=== PATIENT | male | born 1945 | race Caucasian/White ===

== ENCOUNTER 2020-06-13 14:13 | Emergency (ER) | payer OTHER ==
--- OUTSIDE RECORDS SUMMARY | 2020-06-13 14:16 | XMS REPORT | Clinical Summary ---
:1945 Author Organization [facility] Address [address] [place] [address] Care Team Providers Name Role Phone Cj Magana MD Primary Care Provider Allergies No Known Active Allergies Medications Medication Sig Dispensed Refills Start Date End Date Status lisinopril Take 5 mg by 0 Active (PRINIVIL,ZESTRIL) 5 mg mouth daily. 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 07/22/2017 without gangrene, without long-term current use of ins ulin Diabetic peripheral neuropathy 07/22/2017 S/P CABG x 3 07/22/2017 Ulcer of right foot 07/15/2017 Other hyperlipidemia 07/15/2017 ACS (acute coronary syndrome) 07/09/2017 IDDM (insulin dependent diabetes mellitus) 07/05/2017 Coronary artery disease involving [place] coronary rohini ry of [place] heart 07/05/2017 without angina pectoris Obesity 07/05/2017 Surgical History Surgery Date Site/Laterality Comments AMPUTATION 05/08/2012 - right 3rd and 4t h toes 05/07/2013 amputated and ri ght first toe put ov er incision to cove r wound. CABG, WITH ENDOSCOPIC VEIN 07/13/2017 Chest/N/A Proce dure: CAB WITH EV; HARVESTING Surgeon: Eduardo Kerr MD ; Location: [facility]; Service: Cardiothoracic; Laterality: N/A; Medical devices from this surgery are in the Implants section . Medical History Medical History Date Comments Diabetes mellitus (HCC) 2007 Hypertension CAD (coronary artery disease) Family History Medical History Relation Name Comments Diabetes Brother Heart disease Brother Cancer Father Relation Name Status Comments Brother Father Mother Social History Tobacco Use Types Packs/Day Years Used Date Never Smoker Smokeless Tobacco: Former User Chew Q uit: 07/07/2017 Alcohol Use Drinks/Week oz/Week Comments No Sex Assigned at Date Recorded Not on file Last Filed Vital Signs Not on file Plan of Treatment Health Maintenance Due Date Last Done Comments DIABETIC FOOT EXAM 1957 URINE MICROALBUMIN 1957 COVID-19 VACCINE (1 of 2) 1963 HEPATITIS C SCREENING 1965 COLONOSCOPY SCREENING 1997 SHINGLES VACCINES (#1) 1997 65+ PNEUMOCOCCAL VACCINE (1 of 1 - PPSV23) 01/10/2012 DIABETES: RETINAL EYE EXAM 01/10/2019 01/10/2017 INFLUENZA VACCINE 12/07/2019 Implants Implanted Type Area Ceramic Coater Device Shelf Model / Identifier Expiration Serial / Date Lot Drain Wnd 19fr Rnd Hbls W/ 1/4in Bendbl Trocar Eloise Emre ke Wht - [id number] Surgical N/A: N/A ETHICON DIV OF 2231 / Implanted: 07/13/2017 at [facility] (Quantity not on file) Imp lants; MARY ANN & / Expanders; MARY ANN Extenders; Surgical Wires Drain Wnd 19fr Rnd Hbls W/ 4in Bendbl Trocar Eloise Emre ke Wht - [id number] Surgical N/A: N/A ETHICON DIV OF 2231 / Implanted: 07/13/2017 at [facility] (Quantity not on file) Imp lants; MARY ANN & / Expanders; MARY ANN Extenders; Surgical Wires [facility] [facility] Vasclr Ptfe 1.2x10cm 1.65mm - [id number] Vascular N/A: N/A BARD PERIPHERAL 04/04/2022 [id number] / Implanted: 07/13/2017 at [facility] (Quantity not on file) Graft VASCULAR / [id number] Explanted Type Area Ceramic Coater Device Shelf Model / Identifier Expiration Serial / Date Lot Lead Pace Hardik Mycrdl Unipol Tmpry Streamline - [id number] Cardi ovascular N/A: [employer] [place] - [id number] / Implanted: 07/13/2017 at [facility] (Quantity not on file) Imp lants N/A CARDIAC SRGRY / Lead Pace Hardik Mycrdl Unipol Tmpry Streamline - [id number] Cardi ovascular N/A: [employer] [place] - [id number] / Implanted: 07/13/[address] [facility] (Quantity not on file) Imp lants N/A CARDIAC SRGRY / Results Not on fileafter 06/13/2019 Additional Health Concerns Infection Onset Date Last Indicated Resolved Time CRE (C ) 07/21/2017 07/21/2017 Insurance Payer Benefit Plan / Subscriber ID Effective Dates Phone Addre ss Type Group MEDICARE MEDICARE PART A [id number] 2012-Present MYRON MALONEY Medicare AND B Advance Directives For more information, please contact: [phone] Type Date Recorded Patient Toll Operator Explanati on Advance Directives, Living Will and Medical Power of Outdoor Landscape Architect Code Status Date Activated Date Inactivated Comments Full Code 07/10/2017 2:09 AM 07/11/2017 2:59 PM Code Status decision reached by: Patient
[2020-06-13] MEDS ORDERED: levoFLOXacin 750 MG TAB ONE (15:27)
[2020-06-13] MEDS ORDERED: TETANUS & DIPHTHERIA TOX,ADULT 0.5 ML VIAL ONE (15:28)
--- NOTE | 2020-06-13 15:55 | RAD REPORT ---
EXAM DESCRIPTION: RAD - Foot Right 3 View - 06/13/2020 3:29 pm CLINICAL HISTORY: puncture, rule out fb COMPARISON: No comparisons FINDINGS: No acute fracture change. No acute bony destructive process identifiable. No retained fore ign body seen in the soft tissues. Patient has large plantar and Achilles spurs. The first- third toe s and most of each first through third metatarsal have been resected. No destructive component. No ai r in the soft tissues. IMPRESSION: No foreign body in the soft tissues. First- third toe and metatarsal resection changes present with associated remodeling of the bony stru ctures.
--- NOTE | 2020-06-13 16:00 | ER ---
Nurse's Notes [facility] Name: Gaston Mcclain Age: 75 yrs Sex: Male : 1945 Arrival Date: 06/13/2020 Time: 14:16 Bed 14 Private MD: Diagnosis: Puncture wound without foreign body of foot Presentation: 06/13 14:38 Chief complaint: Patient states: Patient stepped on a shannan nail about 1337 today. nail zb went through boot into foot. denies updated tetanus shot. Coronavirus screen: At this time, the client does not indicate any symptoms associated with coronavirus-19. Ebola Screen: No symptoms or risks identified at this time. Initial Sepsis Screen: Does the patient meet any 2 criteria? No. Patient's initial sepsis screen is negative. Does the patient have a suspected source of infection? No. Patient's initial sepsis screen is negative. Risk Assessment: Do you want to hurt yourself or someone else? Patient reports no desire to harm self or others. Onset of symptoms was June 13, 2020. 14:38 Acuity: BAILEE 3 zb 14:38 Method Of Arrival: Wheelchair zb Triage Assessment: 14:53 General: Appears in no apparent distress. uncomfortable, Behavior is cooperative, zb agitated. Pain: Complains of pain in arch of right foot Pain currently is 5 out of 10 on a pain scale. Quality of pain is described as stinging, Pain began gradually, 1 hour ago. EENT: No deficits noted. Neuro: No deficits noted. Level of Consciousness is awake, alert, obeys commands, Oriented to person, place, time, situation. Cardiovascular: Capillary refill < 3 seconds in bilateral fingers Patient's skin is warm and dry. Respiratory: Airway is patent Respiratory effort is even, unlabored, Respiratory pattern is regular, symmetrical. GI: No signs and/or symptoms were reported involving the gastrointestinal system. : No signs and/or symptoms were reported regarding the genitourinary system. Derm: Skin is intact, is healthy with good turgor, Skin is dry, Skin is normal, Skin temperature is warm. 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 Capillary refill < 3 seconds, in bilateral fingers. Range of motion: right foot. Historical: - Allergies: 14:52 No Known Allergies; zb - Home Meds: 14:52 insulin [Active]; zb - PMHx: 14:52 Diabetes - IDDM; zb - PSHx: 14:52 CABG; zb - Immunization history:: Adult Immunizations up to date, Adult Immunizations Last tetanus immunization: > 10 years ago. - Social history:: Smoking status: Patient denies any tobacco usage or history of. Screenin:47 Abuse screen: Denies threats or abuse. Denies injuries from another. Nutritional zb screening: No deficits noted. Tuberculosis screening: No symptoms or risk factors identified. Fall Risk None identified. Assessment: 14:53 Reassessment: See triage noted. Reassessment: dressing bandaged with gauge and cleaned. zb 15:46 Reassessment: Patient and/or family updated on plan of care and expected duration. Pain zb level reassessed. Patient is alert, oriented x 3, equal unlabored respirations, skin warm/dry/pink. no changes at this time. IM protocol completed. 15:47 Reassessment: ECP at bedside discussing care with patient. zb Vital Signs: 14:38 BP 148 / 62; Pulse 72; Resp 17; Temp 98.4; Pulse Ox 97% on R/A; Weight 114.76 kg; zb Height 6 ft. 2 in. (187.96 cm); Pain 5/10; 15:46 BP 135 / 55; Pulse 68; Resp 18; Pulse Ox 98% on R/A; zb 14:38 Body Mass Index 32.48 (114.76 kg, 187.96 cm) zb ED Course: 14:16 Patient arrived in ED. ag5 14:26 Patient has correct armband on for positive identification. Bed in low position. Call mh5 light in reach. Side rails up X 1. Pulse ox on. NIBP on. 14:34 Samir Melgar PA is PHCP. [facility] 14:34 Mitchell Anand MD is Attending Physician. jmm 14:37 Nancy Tineo RN is Primary Nurse. zb 14:40 Triage completed. zb 15:29 Foot Right 3 View XRAY In Process Unspecified. EDMS 15:48 Arm band placed on. zb 15:49 No provider procedures requiring assistance completed. Patient did not have IV access zb during this emergency room visit. 15:59 Nathan Latham DPM is Referral Physician. riley Administered Medications: 15:23 Drug: Tetanus-Diphtheria Toxoid Adult 0.5 ml {Cigar Head Holer: [employer]. Exp: zb 08/22/2021. Lot #: [id number]. } Route: IM; Site: right deltoid; 15:24 Drug: LevaQUIN 750 mg Route: PO; zb Outcome: 15:59 Discharge ordered by . riley 16:05 Discharged to home ambulatory. zb 16:05 Condition: stable 16:05 Discharge instructions given to patient, Instructed on discharge instructions, follow up and referral plans. medication usage, Demonstrated understanding of instructions, follow-up care, medications, Prescriptions given X 1. 16:07 Patient left the ED. zb Signatures: Dispatcher [employer] EDMS Samir Melgar PA PA jmm Martinez, Maria 5 Mike Magallon 5 Nancy Tineo RN RN zb
--- NOTE | 2020-06-13 16:00 | EDPHYS ---
Physician Documentation [facility] Name: Gaston Mcclain Age: 75 yrs Sex: Male : 1945 Arrival Date: 06/13/2020 Time: 14:16 Bed 14 Private MD: ED Physician Mitchell Anand HPI: 06/13 14:50 This 75 yrs old Unknown Male presents to ER via Wheelchair with complaints of Puncture jmm Wound To Foot. 14:50 The patient presents with an injury, pain. Onset: The symptoms/episode began/occurred jmm acutely, gradually. Modifying factors: The symptoms are alleviated by nothing, the symptoms are aggravated by nothing. Associated signs and symptoms: Pertinent negatives: calf tenderness, fever, nausea, swelling, tingling, vomiting, warmth, weakness. This is a 75 year old male with a history of DM, that presents to the ED with complaints of a puncture wound to his right foot. Patient states the nail went through his boot. . Historical: - Allergies: 14:52 No Known Allergies; zb - Home Meds: 14:52 insulin [Active]; zb - PMHx: 14:52 Diabetes - IDDM; zb - PSHx: 14:52 CABG; zb - Immunization history:: Adult Immunizations up to date, Adult Immunizations Last tetanus immunization: > 10 years ago. - Social history:: Smoking status: Patient denies any tobacco usage or history of. ROS: 14:50 Constitutional: Negative for fever, chills, and weight loss, Cardiovascular: Negative jmm for chest pain, palpitations, and edema, Respiratory: Negative for shortness of breath, cough, wheezing, and pleuritic chest pain. 14:50 Skin: Positive for puncture. 14:50 All other systems are negative. Exam: 14:50 Constitutional: This is a well developed, well nourished patient who is awake, alert, jmm and in no acute distress. Head/Face: atraumatic. Eyes: EOMI, no conjunctival erythema appreciated ENT: Moist Mucus Membranes Neck: Trachea midline, Supple Chest/axilla: Normal chest wall appearance and motion. Cardiovascular: Regular rate and rhythm. No edema appreciated Respiratory: Normal respirations, no respiratory distress appreciated Abdomen/GI: Non distended, soft Back: Normal ROM 14:50 Skin: puncture wound noted to the plantar surface of the right foot, no surrounding erythema or induration appreciated. . 14:50 Neuro: Orientation: is normal, Mentation: is normal, Memory: is normal. 14:50 Psych: Behavior/mood is pleasant, cooperative. Vital Signs: 14:38 BP 148 / 62; Pulse 72; Resp 17; Temp 98.4; Pulse Ox 97% on R/A; Weight 114.76 kg; zb Height 6 ft. 2 in. (187.96 cm); Pain 5/10; 15:46 BP 135 / 55; Pulse 68; Resp 18; Pulse Ox 98% on R/A; zb 14:38 Body Mass Index 32.48 (114.76 kg, 187.96 cm) zb MDM: 14:35 Patient medically screened. [facility] 15:58 Data reviewed: vital signs, nurses notes. Counseling: I had a detailed discussion with riley the patient and/or guardian regarding: the historical points, exam findings, and any diagnostic results supporting the discharge/admit diagnosis, radiology results, the need for outpatient follow up, to return to the emergency department if symptoms worsen or persist or if there are any questions or concerns that arise at home. ED course: Patient given wound infection return precautions. Patient understood and agrees with the plan of care. . 06/13 14:48 Order name: Foot Right 3 View XRAY; Complete Time: 15:58 [facility] Administered Medications: 15:23 Drug: Tetanus-Diphtheria Toxoid Adult 0.5 ml {Distribution Superintendent: [employer]. Exp: zb 08/22/2021. Lot #: [id number]. } Route: IM; Site: right deltoid; 15:24 Drug: LevaQUIN 750 mg Route: PO; zb Disposition: 17:50 Co-signature as Attending Physician, Mitchell Anand MD. rn Disposition: 06/13/20 15:59 Discharged to Home. Impression: Puncture wound without foreign body of foot. - Condition is Stable. - Discharge Instructions: Puncture Wound. - Prescriptions for Levaquin 750 mg Oral Tablet - take 1 tablet by ORAL route once daily for 10 days; 10 tablet. - Medication Reconciliation Form, Thank You Letter, Antibiotic Education, Prescription Opioid Use form. - Follow up: Nathan Latham DPM; When: 2 - 3 days; Reason: Recheck today's complaints, Continuance of care, Re-evaluation by your physician. Signatures: Dispatcher [employer] Samir Pruett PA PA jmm Nieto, Roman, MD MD rn Brown, Zipporah, RN RN zb Corrections: (The following items were deleted from the chart) 16:07 15:59 06/13/2020 15:59 Discharged to Home. Impression: Puncture wound without foreign zb body of foot. Condition is Stable. Forms are Medication Reconciliation Form, Thank You Letter, Antibiotic Education, Prescription Opioid Use. Follow up: Nathan Latham; When: 2 - 3 days; Reason: Recheck today's complaints, Continuance of care, Re-evaluation by your physician. riley
[2020-06-13 16:19] VITALS: TEMP 98.4
[2020-06-13 16:20] VITALS: BP 135/55; O2SAT 98
== END 2020-06-13 16:07 | disposition home or self-care (01) ==
LOC: ER 14:13
DX: S91.331A Puncture wound without foreign body, right foot, initial encounter (principal); W45.0XXA Nail entering through skin, initial encounter; Y93.01 Activity, walking, marching and hiking; Y92.9 Unspecified place or not applicable; Z23 Encounter for immunization; Z79.4 Long term (current) use of insulin; Z95.1 Presence of aortocoronary bypass graft; E11.9 Type 2 diabetes mellitus without complications
CPT/HCPCS: 90471; 90714; 99284

== ENCOUNTER 2023-03-24 11:34 | Inpatient (IN) | payer OTHER ==
--- NOTE | 2023-03-24 12:58 | EDPHYS ---
Physician Documentation [facility] Name: Gaston Mcclain Age: 78 yrs Sex: Male : 1945 Arrival Date: 03/24/2023 Time: 11:34 Bed 4 Private MD: AFTAB Physician Ryan Dye HPI: 03/24 12:49 This 78 yrs old Male presents to ER via Wheelchair with complaints of Foot terri Infection. 12:49 The patient presents with decreased range of motion, pain, swelling, tenderness. The terri complaints affect the left foot, plantar aspect of left first toe, ball of left foot, left first toe and medial aspect of left toes. 12:50 Context: resulted from an old injury, old abrasion, the patient can partially bear terri weight. Onset: The symptoms/episode began/occurred 3 week(s) ago. Modifying factors: The symptoms are alleviated by nothing, the symptoms are aggravated by weight bearing, movement, wearing shoes. Associated signs and symptoms: Pertinent positives: fever, swelling, warmth. Severity of symptoms: At their worst the symptoms were moderate, in the emergency department the symptoms are unchanged. The patient has experienced similar episodes in the past, multiple times. Historical: - Allergies: 12:08 No Known Allergies; nj1 - PMHx: 12:08 Diabetes - IDDM; nj1 - PSHx: 12:08 Coronary artery bypass graft; nj1 - Immunization history:: Client reports receiving the 2nd dose of the Covid vaccine. - Social history:: Smoking status: Patient reports use of chewing tobacco. - Family history:: not pertinent. - Hospitalizations: : No recent hospitalization is reported. ROS: 12:50 Constitutional: Negative for fever, chills, and weight loss, Eyes: Negative for injury, terri pain, redness, and discharge, ENT: Negative for injury, pain, and discharge, Neck: Negative for injury, pain, and swelling, Cardiovascular: Negative for chest pain, palpitations, and edema, Respiratory: Negative for shortness of breath, cough, wheezing, and pleuritic chest pain, Abdomen/GI: Negative for abdominal pain, nausea, vomiting, diarrhea, and constipation, Back: Negative for injury and pain, : Negative for injury, bleeding, discharge, and swelling, Neuro: Negative for headache, weakness, numbness, tingling, and seizure, Psych: Negative for depression, anxiety, suicide ideation, homicidal ideation, and hallucinations, Allergy/Immunology: Negative for hives, rash, and allergies, Endocrine: Negative for neck swelling, polydipsia, polyuria, polyphagia, and marked weight changes, Hematologic/Lymphatic: Negative for swollen nodes, abnormal bleeding, and unusual bruising, 12:50 MS/extremity: Positive for decreased range of motion, erythema, pain, swelling, tenderness, of the instep of left foot, plantar aspect of left first toe, ball of left foot, left first toe and medial aspect of left toes, Exam: 12:50 Constitutional: This is a well developed, well nourished patient who is awake, alert, terri and in no acute distress. Head/Face: Normocephalic, atraumatic. Eyes: Pupils equal round and reactive to light, extra-ocular motions intact. Lids and lashes normal. Conjunctiva and sclera are non-icteric and not injected. Cornea within normal limits. Periorbital areas with no swelling, redness, or edema. ENT: Nares patent. No nasal discharge, no septal abnormalities noted. Tympanic membranes are normal and external auditory canals are clear. Oropharynx with no redness, swelling, or masses, exudates, or evidence of obstruction, uvula midline. Mucous membranes moist. Neck: Trachea midline, no thyromegaly or masses palpated, and no cervical lymphadenopathy. Supple, full range of motion without nuchal rigidity, or vertebral point tenderness. No Meningismus. Chest/axilla: Normal chest wall appearance and motion. Nontender with no deformity. No lesions are appreciated. Cardiovascular: Regular rate and rhythm with a normal S1 and S2. No gallops, murmurs, or rubs. Normal PMI, no JVD. No pulse deficits. Respiratory: Lungs have equal breath sounds bilaterally, clear to auscultation and percussion. No rales, rhonchi or wheezes noted. No increased work of breathing, no retractions or nasal flaring. Abdomen/GI: Soft, non-tender, with normal bowel sounds. No distension or tympany. No guarding or rebound. No evidence of tenderness throughout. Back: No spinal tenderness. No costovertebral tenderness. Full range of motion. Male : Normal genitalia with no discharge or lesions. Neuro: Awake and alert, GCS 15, oriented to person, place, time, and situation. Cranial nerves II-XII grossly intact. Motor strength 5/5 in all extremities. Sensory grossly intact. Cerebellar exam normal. Normal gait. Psych: Awake, alert, with orientation to person, place and time. Behavior, mood, and affect are within normal limits. 12:50 Musculoskeletal/extremity: ROM: full active range of motion, full passive range of motion, Circulation is intact in all extremities. Sensation intact. Compartment Syndrome exam of affected extremity: is normal. DVT Exam: negative Homans' sign noted on exam, no appreciated bluish discoloration, pain, swelling, tenderness, erythema, increased warmth, 12:50 Skin: Appearance: Color: erythematous, Temperature: hot, Moisture: normal moisture, petechiae, not noted, ecchymosis, not noted, 13:22 ECG was reviewed by the Attending Physician. [facility] Vital Signs: 12:04 BP 106 / 95; Pulse 75; Resp 18; Temp 98(O); Pulse Ox 100% ; Weight 99.79 kg; Height 6 nj1 ft. 1 in. ; Pain 8/10; 16:15 BP 153 / 59; Pulse 64; Resp 16 S; Pulse Ox 98% on R/A; kc6 12:04 Body Mass Index 29.03 (99.79 kg, 185.42 cm) nj1 12:04 Pain Scale: Adult nj1 MDM: 11:37 Patient medically screened. [facility] 13:21 Differential diagnosis: fracture, sprain, arthritis, gout, cellulitis. Data reviewed: [facility] vital signs, nurses notes, lab test result(s), EKG, radiologic studies, MRI, plain films. Consideration of Admission/Observation Patient was admitted/placed on observation. Escalation of care including admission/observation considered. I considered the following discharge prescriptions or medication management in the emergency department Medications were administered in the Emergency Department. See MAR. Independent interpretation of the following test(s) in the Emergency Department EKG: See my EKG interpretation above. Test considered but Not performed: Ultrasound no abd usg. Historians other than the Patient: Family Member: daughter. Care significantly affected by the following chronic conditions: Diabetes, Hypertension, Obesity. 03/24 12:42 Order name: Basic Metabolic Panel; Complete Time: 14:28 [facility] 03/24 12:42 Order name: CBC with Diff; Complete Time: 14:28 [facility] 03/24 12:42 Order name: LFT's; Complete Time: 14:28 [facility] 03/24 12:42 Order name: Magnesium; Complete Time: 14:28 [facility] 03/24 12:42 Order name: NT PRO-BNP; Complete Time: 14:28 [facility] 03/24 12:42 Order name: PT-INR; Complete Time: 14:28 [facility] 03/24 12:42 Order name: Troponin HS; Complete Time: 14:28 [facility] 03/24 12:42 Order name: COVID-19/FLU A+B/RSV; Complete Time: 14:28 [facility] 03/24 12:42 Order name: Blood Culture Adult (2) [facility] 03/24 12:42 Order name: CRP; Complete Time: 14:28 [facility] 03/24 12:42 Order name: Lipase; Complete Time: 14:28 [facility] 03/24 12:42 Order name: Lactate w/ 2H reflex if indic.; Complete Time: 14:28 [facility] 03/24 12:53 Order name: Wound Culture [facility] 03/24 13:55 Order name: Lactate w/ 2H reflex if indic. EDMS 03/24 13:55 Order name: Urinalysis w/ reflexes EDMS 03/24 13:55 Order name: Basic Metabolic Panel EDMS 03/24 13:55 Order name: Basic Metabolic Panel EDMS 03/24 13:55 Order name: Basic Metabolic Panel EDMS 03/24 13:55 Order name: Basic Metabolic Panel EDMS 03/24 13:55 Order name: Basic Metabolic Panel EDMS 03/24 13:55 Order name: Basic Metabolic Panel EDMS 03/24 13:55 Order name: CBC with Automated Diff EDMS 03/24 13:55 Order name: CBC with Automated Diff EDMS 03/24 13:55 Order name: CBC with Automated Diff EDMS 03/24 13:55 Order name: CBC with Automated Diff EDMS 03/24 13:55 Order name: CBC with Automated Diff EDMS 03/24 13:55 Order name: CBC with Automated Diff EDMS 03/24 13:55 Order name: Magnesium EDMS 03/24 13:55 Order name: Magnesium EDMS 03/24 13:55 Order name: Magnesium EDMS 03/24 13:55 Order name: Magnesium EDMS 03/24 13:55 Order name: Magnesium EDMS 03/24 13:55 Order name: Magnesium EDMS 03/24 13:55 Order name: Phosphorus EDMS 03/24 13:55 Order name: Phosphorus EDMS 03/24 13:55 Order name: Phosphorus EDMS 03/24 13:55 Order name: Phosphorus EDMS 03/24 13:55 Order name: Phosphorus EDMS 03/24 13:55 Order name: Phosphorus EDMS 03/24 13:55 Order name: Troponin High Sensitivity EDMS 03/24 13:55 Order name: Troponin High Sensitivity EDMS 03/24 13:55 Order name: Troponin High Sensitivity [facility] 03/24 12:42 Order name: XRAY Chest (1 view); Complete Time: 14:28 [facility] 03/24 12:45 Order name: Foot Left 3 View XRAY; Complete Time: 14:28 [facility] 03/24 12:45 Order name: Foot Right 3 View XRAY; Complete Time: 14:28 [facility] 03/24 12:48 Order name: Foot Left Wo Cont [facility] 03/24 12:42 Order name: EKG; Complete Time: 12:43 [facility] 03/24 13:55 Order name: CONS Physician Consult [facility] 03/24 12:42 Order name: Cardiac monitoring; Complete Time: 12:48 [facility] 03/24 12:42 Order name: EKG - Nurse/Tech; Complete Time: 12:48 [facility] 03/24 12:42 Order name: IV Saline Lock; Complete Time: 12:48 [facility] 03/24 12:42 Order name: Labs collected and sent; Complete Time: 12:48 [facility] 03/24 12:42 Order name: O2 Per Protocol; Complete Time: 12:48 [facility] 03/24 12:42 Order name: O2 Sat Monitoring; Complete Time: 12:48 [facility] EC:22 Rate is 71 beats/min. Rhythm is regular. QRS [place] is Normal. [place] interval is normal. QRS terri interval is normal. QT interval is prolonged at 467 msec. No Q waves. T waves are Normal. No ST changes noted. Clinical impression: NSR w/ Non-specific ST/T Changes, Abnormal EKG without significant change, and No evidence of ischemia. Interpreted by me. Reviewed by me. Administered Medications: 13:09 Drug: Piperacillin-Tazobactam IVPB 3.375 grams IVPB once over 60 mins; (mix in NS 100 kc6 mL) Route: IVPB; Infused Over: 60 mins; Site: right antecubital; 14:30 Follow up: Response: No adverse reaction; IV Status: Completed infusion; IV Intake: kc6 100ml 13:15 Drug: morphine IVP or IV 4 mg IVP once over 4 mins Route: IVP; Infused Over: 4 mins; kc6 Site: left antecubital; 14:30 Follow up: Response: No adverse reaction; Pain is decreased; RASS: Alert and Calm (0) kc6 13:15 Drug: Ondansetron IVP 4 mg IVP once; over 2 minutes Route: IVP; Site: left antecubital; kc6 14:31 Follow up: Response: No adverse reaction kc6 14:59 Drug: vancoMYCIN IVPB 1.5 grams IVPB at calculated rate once Route: IVPB; Rate: kc6 calculated rate; Site: right antecubital; 16:17 Follow up: Response: No adverse reaction; IV Status: Completed infusion; IV Intake: kc6 250ml 14:59 Drug: Lovenox Sub-Q 40 mg Sub-Q once Route: Sub-Q; Site: abdomen; kc6 16:17 Follow up: Response: No adverse reaction kc6 Disposition Summary: 03/24/23 12:57 Hospitalization Ordered Notes: Condition: Fair terri Problem: new terri Symptoms: have improved terri Bed/Room Type: Standard terri Hospitalization Status: Inpatient Admission(03/24/23 13:25) terri Provider: Umair Cruz(03/24/23 13:25) terri Location: Telemetry/MedSurg (Inpatient)(03/24/23 14:38) eb Room Assignment: 214(03/24/23 14:38) eb Diagnosis - Personal history of diabetic foot ulcer terri - Type 2 diabetes mellitus with hyperglycemia terri - Cellulitis of other parts of limb - left foot and great toe terri - Osteomyelitis, unspecified - left foot terri - Unspecified kidney failure - renal insufficency terri Forms: - Medication Reconciliation Form terri - SBAR form terri - Leadership Thank You Letter terri Signatures: Dispatcher [employer] Ryan Whatley MD MD cha Botello, Elizabeth eb Campbell, Kaitlyn RN RN kc6 Lyndsey To RN RN kb3 Neha Hubbard RN RN nj1 Corrections: (The following items were deleted from the chart) 13:25 12:57 Inpatient Admission terri murray 13:25 12:57 Chuck Fritz cha terri 14: 12:57 Telemetry/MedSurg (Inpatient) terri kb3 14:27 12:57 terri kb3 14:38 14:27 [facility] kb3 eb 14:38 14:27 ERHOLD- kb3 eb
--- NOTE | 2023-03-24 12:58 | ER ---
Nurse's Notes [facility] Name: Gaston Mcclain Age: 78 yrs Sex: Male : 1945 Arrival Date: 03/24/2023 Time: 11:34 Bed 4 Private MD: Diagnosis: Personal history of diabetic foot ulcer;Type 2 diabetes mellitus with hyperglycemia;Cellulitis of other parts of limb-left foot and great toe;Osteomyelitis, unspecified-left foot;Unspecified kidney failure-renal insufficency Presentation: 03/24 12:04 Chief complaint: Patient states: Left foot bunion infection that started draining last nj1 week, feels weak, states blood pressure is low. 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 Coronavirus screen: Vaccine status: Patient reports receiving the 2nd dose of the covid vaccine. Ebola Screen: Patient denies travel to an Ebola-affected area in the 21 days before illness onset. Initial Sepsis Screen: Does the patient meet any 2 criteria? No. Patient's initial sepsis screen is negative. Does the patient have a suspected source of infection? No. Patient's initial sepsis screen is negative. Risk Assessment: Do you want to hurt yourself or someone else? Patient reports no desire to harm self or others. Onset of symptoms was March 17, 2023. 12:04 Method Of Arrival: Wheelchair nj1 12:04 Acuity: BAILEE 3 nj1 Historical: - Allergies: 12:08 No Known Allergies; nj1 - PMHx: 12:08 Diabetes - IDDM; nj1 - PSHx: 12:08 Coronary artery bypass graft; nj1 - Immunization history:: Client reports receiving the 2nd dose of the Covid vaccine. - Social history:: Smoking status: Patient reports use of chewing tobacco. - Family history:: not pertinent. - Hospitalizations: : No recent hospitalization is reported. Screenin:38 [facility] ED Fall Risk Assessment (Adult) History of falling in the last 3 months, kc6 including since admission No falls in past 3 months (0 pts) Confusion or Disorientation No (0 pts) Intoxicated or Sedated No (0 pts) Impaired Gait No (0 pts) Mobility Assist Device Used No (0 pt) Altered Elimination No (0 pt) Score/Fall Risk Level 0 - 2 = Low Risk. Abuse screen: Denies threats or abuse. Denies injuries from another. Nutritional screening: No deficits noted. Tuberculosis screening: No symptoms or risk factors identified. Assessment: 12:30 General: Appears in no apparent distress. comfortable, Behavior is calm, cooperative, kc6 appropriate for age. Pain: Complains of pain in right foot and left foot. Neuro: Level of Consciousness is awake, alert, obeys commands, Oriented to person, place, time, situation, Appropriate for age. Cardiovascular: Capillary refill < 3 seconds. Respiratory: Airway is patent Trachea midline Respiratory effort is even, unlabored, Respiratory pattern is regular, symmetrical. GI: No signs and/or symptoms were reported involving the gastrointestinal system. : No signs and/or symptoms were reported regarding the genitourinary system. EENT: No signs and/or symptoms were reported regarding the EENT system. Derm: Skin is healthy with good turgor, Skin is pink, warm \\T\\ dry. Wound noted right foot and left foot. Musculoskeletal: No signs and/or symptoms reported regarding the musculoskeletal system. Circulation, motion, and sensation intact. Capillary refill < 3 seconds, Range of motion: intact in all extremities. 13:30 Reassessment: Patient appears in no apparent distress at this time. No changes from kc6 previously documented assessment. Patient and/or family updated on plan of care and expected duration. Pain level reassessed. Patient is alert, oriented x 3, equal unlabored respirations, skin warm/dry/pink. 14:30 Reassessment: Patient appears in no apparent distress at this time. No changes from kc6 previously documented assessment. Patient and/or family updated on plan of care and expected duration. Pain level reassessed. Patient is alert, oriented x 3, equal unlabored respirations, skin warm/dry/pink. 15:30 Reassessment: Patient appears in no apparent distress at this time. No changes from kc6 previously documented assessment. Patient and/or family updated on plan of care and expected duration. Pain level reassessed. Patient is alert, oriented x 3, equal unlabored respirations, skin warm/dry/pink. 16:16 Reassessment: attempted to call report to 2nd floor. no answer from nurse at this time. kc6 Vital Signs: 12:04 BP 106 / 95; Pulse 75; Resp 18; Temp 98(O); Pulse Ox 100% ; Weight 99.79 kg; Height 6 nj1 ft. 1 in. ; Pain 8/10; 16:15 BP 153 / 59; Pulse 64; Resp 16 S; Pulse Ox 98% on R/A; kc6 12:04 Body Mass Index 29.03 (99.79 kg, 185.42 cm) nj1 12:04 Pain Scale: Adult [facility] ED Course: 11:36 Patient arrived in ED. rg4 11:37 Ryan Dye MD is Attending Physician. terri 12:08 Triage completed. nj1 12:08 Arm band placed on right wrist. nj1 12:24 Ayesha Garcia, BELEN is Primary Nurse. kc6 12:38 Inserted saline lock: 20 gauge in left antecubital area, using aseptic technique. Blood kc6 collected. Patient maintains SpO2 saturation greater than 95% on room air. 12:39 Patient has correct armband on for positive identification. Bed in low position. Call kc6 light in reach. Side rails up X 1. Adult w/ patient. Client placed on continuous cardiac and pulse oximetry monitoring. NIBP monitoring applied. director professional services on. 12:48 Inserted saline lock: 20 gauge in right antecubital area, using aseptic technique. kc6 Blood collected. 12:56 Chuck Fritz MD is Hospitalizing Provider. terri 13:15 XRAY Chest (1 view) In Process Unspecified. EDMS 13:15 Foot Left 3 View XRAY In Process Unspecified. EDMS 13:15 Foot Right 3 View XRAY In Process Unspecified. EDMS 13:24 Umair Cruz is Hospitalizing Provider. terri 16:16 No provider procedures requiring assistance completed. Patient admitted, IV remains in kc6 place. Administered Medications: 13:09 Drug: Piperacillin-Tazobactam IVPB 3.375 grams IVPB once over 60 mins; (mix in NS 100 kc6 mL) Route: IVPB; Infused Over: 60 mins; Site: right antecubital; 14:30 Follow up: Response: No adverse reaction; IV Status: Completed infusion; IV Intake: kc6 100ml 13:15 Drug: morphine IVP or IV 4 mg IVP once over 4 mins Route: IVP; Infused Over: 4 mins; kc6 Site: left antecubital; 14:30 Follow up: Response: No adverse reaction; Pain is decreased; RASS: Alert and Calm (0) kc6 13:15 Drug: Ondansetron IVP 4 mg IVP once; over 2 minutes Route: IVP; Site: left antecubital; kc6 14:31 Follow up: Response: No adverse reaction kc6 14:59 Drug: vancoMYCIN IVPB 1.5 grams IVPB at calculated rate once Route: IVPB; Rate: kc6 calculated rate; Site: right antecubital; 16:17 Follow up: Response: No adverse reaction; IV Status: Completed infusion; IV Intake: kc6 250ml 14:59 Drug: Lovenox Sub-Q 40 mg Sub-Q once Route: Sub-Q; Site: abdomen; kc6 16:17 Follow up: Response: No adverse reaction kc6 Intake: 14:30 IV: 100ml; Total: 100ml. kc6 16:17 IV: 250ml; Total: 350ml. kc6 Outcome: 12:57 Decision to Hospitalize by Provider. terri 16:54 Patient left the ED. kc6 Signatures: Dispatcher [employer] EDRyan Pittman MD MD cha Garcia, Rubi rg4 Ayesha Garcia RN RN kc6 Neha Hubbard RN RN nj1
[2023-03-24] MEDS ORDERED: NA CHLORIDE 0.9% 100 ML ONE (13:10)
[2023-03-24] MEDS ORDERED: NA CHLORIDE 0.9% 250 ML ONE (13:10)
[2023-03-24] MEDS ORDERED: VANCOMYCIN 1 GM/VIAL ONE (13:10)
[2023-03-24] MEDS ORDERED: VANCOMYCIN 500 MG/VIAL ONE (13:10)
[2023-03-24] MEDS ORDERED: PIPERACIL/TAZO 3.375 GM VIAL IV ONE (13:11)
[2023-03-24 13:14] LABS: Absolute Lymphocytes (CBC) 0.9 K/uL (0.7-4.9); Hematocrit 32.6 % (39.6-49.0); Lymphocytes % 11.6 % (15.3-44.8); MCV 85.4 fL (80-100); MPV 8.4 fL (7.6-11.3); Platelets 371 thou/uL (152-406); Protime INR 1.35; RBC Red Blood Cell Count 3.82 M/uL (4.33-5.43)
--- NOTE | 2023-03-24 13:20 | RAD REPORT ---
EXAM DESCRIPTION: RAD - Chest Single View - 03/24/2023 1:13 pm CLINICAL HISTORY: COUGH Chest pain. COMPARISON: No comparisons FINDINGS: Portable technique limits examination quality. Mild interstitial pulmonary edema suspected. The heart is moderately enlarged size. No displaced frac tures.Sternotomy wires. IMPRESSION: Mild CHF.
[2023-03-24] MEDS ORDERED: MORPHINE 4 MG/ML SYR ONE (13:24)
[2023-03-24] MEDS ORDERED: ONDANSETRON 4 MG/2 ML VIAL ONE (13:24)
--- NOTE | 2023-03-24 13:30 | RAD REPORT ---
EXAM DESCRIPTION: RAD - Foot Right 3 View - 03/24/2023 1:13 pm CLINICAL HISTORY: PAIN COMPARISON: Foot Right 3 View dated 06/13/2020; Foot Left 3 View dated 03/24/2023; Chest Single View d ated 03/24/2023 FINDINGS: Previous resection of first through third toes and metatarsals with associated bony remode ling again seen, unchanged since 2020. The fourth and fifth toes appear medially subluxed. Moderate s oft tissue swelling along the anterior dorsal aspect of the foot. Large calcaneal spurs.
--- NOTE | 2023-03-24 13:31 | RAD REPORT ---
EXAM DESCRIPTION: RAD - Foot Left 3 View - 03/24/2023 1:13 pm CLINICAL HISTORY: SWELLING COMPARISON: No comparisons FINDINGS: There is a large plantar ulceration at the first MTP joint and great toe with significant swelling. No soft tissue gas evident. No definitive osteomyelitis seen. Large calcaneal spurs.
[2023-03-24 13:43] LABS: SARS-COV-2 RT PCR NEGATIVE (NEGATIVE)
[2023-03-24 13:58] LABS: Albumin 2.4 g/dL (3.4-5.0); Bilirubin Direct 0.3 mg/dL (0-0.2); Bilirubin Indirect, Calculated 0.6 mg/dL (0.2-0.8); Bilirubin Total 0.9 mg/dL (0.2-1.0); Magnesium 1.9 mg/dL (1.6-2.4); Potassium 3.6 mEq/L (3.5-5.1); Protein, Total 8.5 g/dL (6.4-8.2); Troponin High Sensitivity 31.6 pg/mL (<58.9)
[2023-03-24] MEDS ORDERED: ONDANSETRON 4 MG/2 ML VIAL IV PRN (14:00)
[2023-03-24] MEDS ORDERED: D50W 25 GM/50 ML SYRINGE IV PRN ×2 (14:01→20:10)
[2023-03-24] MEDS ORDERED: GLUCAGON 1 MG/VIAL IM PRN ×2 (14:01→20:10)
--- NOTE | 2023-03-24 14:05 | P.HP ---
Certification for Inpatient Patient admitted to: Inpatient With expected LOS: >2 Midnights Patient will require the following post-hospital care: None Practitioner: I am a practitioner with admitting privileges, knowledge of patient current condition, hospital course, and medical plan of care. Services: Services provided to patient in accordance with Admission requirements found in Title 42 Section 412.3 of the Code of Federal Regulations Patient History Date of Service: 03/24/23 Reason for admission: osteomylitis History of Present Illness: Gaston Mcclain is a 78-year-old male with a past medical history of diabetesIDDM and coronary artery bypass graft who presents to the ED complaining of pain and infection to left foot. Gaston reports grinding a bunion on his left foot which later became flaky skin that he states he ripped off and continued wearing his boots ignoring it. He reports seeing drainage and cleaning it with hydrogen peroxide. He reports it continued to get worse. This morning he felt general malaise and weakness and could not sleep for the last few nights. Of note he has prescribed himself ciprofloxacin 750 mg p.o. daily without relief. Unknown how many days he was taking this. Initial vital BP 106 / 95; Pulse 75; Resp 18; Temp 98(O); Pulse Ox 100%. Significant labs CR protein 155, BNP 4353, troponin 31.6, BUN/creatinine 19/1.99, WBC 8. Left foot x-ray report "There is a large plantar ulceration at the first MTP joint and great toe with significant swelling. No soft tissue gas evident. No definitive osteomyelitis seen. Large calcaneal spurs" Right foot x-ray reports " Previous resection of first through third toes and metatarsals with associated bony remodeling again seen, unchanged since 2020. The fourth and fifth toes appear medially subluxed. Moderate soft tissue swelling along the anterior dorsal aspect of the foot. Large calcaneal spurs" MRI of left foot reports "Moderately severe osteomyelitis and potential septic arthritis centered at the first MTP joint as described". Chest x-ray reports "Mild interstitial pulmonary edema suspected. The heart is moderately enlarged size. No displaced fractures.Sternotomy wires". Gaston will be admitted to hospitalist service for further evaluation and treatment of osteomyelitis Vitas of left foot, Dr. Dickinson consulted. Allergies No Known Allergies Allergy (Unverified 09/10/13 10:17) Home Medications: Insulin -Regular Human [Novolin -R*] 10 - 12 units SQ 1X 09/10/13 Insulin -Regular Human [Novolin -R*] 10 units SQ 1X 09/10/13 Insulin -Regular Human [Novolin -R*] 15 units SQ 1X 09/10/13 - Past Medical/Surgical History Diabetic: Yes -: Right foot 2-3 toes - Social History Alcohol use: No Review of Systems General: Weakness, Malaise Eyes: Unremarkable ENT: Unremarkable Respiratory: Unremarkable Cardiovascular: Unremarkable Gastrointestinal: Unremarkable Genitourinary: Unremarkable Musculoskeletal: Foot Pain (left foot pain) Integumentary: Unremarkable Neurological: Unremarkable Physical Examination - Physical Exam General: Alert, Oriented x3, Moderate distress HEENT: Atraumatic, Normocephalic, PERRLA Neck: Supple, 2+ carotid pulse no bruit, JVD not distended Respiratory: Clear to auscultation bilaterally, Normal air movement Cardiovascular: Normal pulses, Regular rate/rhythm, Normal S1 S2 Capillary refill: <2 Seconds Gastrointestinal: Normal bowel sounds, Soft and benign Musculoskeletal: Swelling, Erythema, Tenderness, Warmth (left foot), Other (amputated right great toe and second toe) Integumentary: Skin breakdown (left foot), Tenderness/swelling (left foot), Erythema (left foot) - Studies Laboratory Data (last 24 hrs) 03/24/23 03/24/23 03/24/23 12:40 12:40 12:40 WBC 8.00 Hgb 11.1 L Hct 32.6 L Plt Count 371 PT 14.9 H INR 1.35 Sodium 134 L Potassium 3.6 BUN 19 H Creatinine 1.99 H Glucose 201 H Magnesium 1.9 Total Bilirubin 0.9 AST 27 ALT 38 Alkaline Phosphatase 65 Lipase 21 Assessment and Plan - Plan Assessment and Plan Cellulitits of Left foot Osteomylitis of left foot Wound culture and blood cultures sent from the ED Consult Dr. Dickinson, likely surgery in the AM zosyn/vanc, given in ED Vanc/cefepime IVF MRI left foot reports "Moderately severe osteomyelitis and potential septic arthritis centered at the first MTP joint as described" Left foot x-ray report "There is a large plantar ulceration at the first MTP joint and great toe with significant swelling. No soft tissue gas evident. No definitive osteomyelitis seen. Large calcaneal spurs" Acute kidney injury BUN/Creatinine 19/1.99 GFR 34 Consult nephrology IDDM accucheck with SSI Serum glucose 201 CHF BNP 4353 DVT ppx: SCD pending surgery DNR LOS 3-4 days Discharge Plan: Home Plan to discharge in: 72 Hours - Advance Directives Does patient have a Living Will: No Does patient have a Durable POA for Healthcare: No Time Spent Managing Pts Care (In Minutes): 55
[2023-03-24] MEDS ORDERED: D10W 125 ML IV PRN (14:30)
--- NOTE | 2023-03-24 14:55 | RAD REPORT ---
EXAM DESCRIPTION: MRI - Foot Left Wo Cont - 03/24/2023 2:28 pm CLINICAL HISTORY: infection Pain and swelling COMPARISON: No comparisons FINDINGS: There is a large amount of soft tissue edema and swelling at the level of the first MTP tessa int and great toe. Prominent soft tissue ulceration is seen along the medial aspect of the forefoot. Areas of hypointensity within the soft tissues in this region is likely air bubbles in the soft tissu e. There is significant abnormal signal seen in the distal aspect of the first metatarsal and base of th e proximal phalanx of the great toe. This demonstrates diminished T1 signal and elevated T2/IR signal likely indicating moderately severe osteomyelitis. There appears to be involvement of the first MTP joint as well which could indicate septic arthritis. IMPRESSION: Moderately severe osteomyelitis and potential septic arthritis centered at the first MTP joint as described.
[2023-03-24] MEDS ORDERED: ENOXAPARIN 40 MG/0.4 ML SQ ONE (15:11)
[2023-03-24] MEDS ORDERED: LIDOCAINE 1% 20 ML MDV ONE (15:45)
[2023-03-24] MEDS ORDERED: INSULIN REGULAR (HUMAN) 100 UNIT/ML SQ SCH (16:30)
[2023-03-24 17:16] VITALS: BMI 29.0
[2023-03-24] MEDS: INSULIN REGULAR (HUMAN) 100 UNIT/ML SQ SCH (21:00)
[2023-03-24] MEDS: CEFEPIME 1 GM in NA CHLORIDE 0.9% 100 ML IV SCH (21:04)
[2023-03-25] MEDS: MORPHINE 2 MG/ML SYR IV PRN ×2 (02:29→20:43)
[2023-03-25 03:22] LABS: Specific Gravity 1.009 (1.005-1.030); Urine Bacteria <20 /HPF (<20); Urine Bilirubin NEGATIVE (Negative); Urine Blood Negative (Negative); Urine Clarity Clear (Clear); Urine Color Light-Yellow (Yellow); Urine Crystals Unidentified Few /HPF (None Seen); Urine Glucose NEGATIVE (Negative); Urine Mucus Slight /HPF (None Seen); Urine Protein NEGATIVE (Negative); Urine RBC <5 /HPF (None Seen); Urine Urobilinogen Normal (Normal); Urine pH 5.5 (5.0-7.0)
[2023-03-25 03:25] LABS: Absolute Lymphocytes (CBC) 1.1 K/uL (0.7-4.9); MCV 86.1 fL (80-100); MPV 8.3 fL (7.6-11.3); Platelets 308 thou/uL (152-406); RBC Red Blood Cell Count 3.49 M/uL (4.33-5.43)
[2023-03-25 03:53] LABS: Magnesium 1.8 mg/dL (1.6-2.4); Phosphorus 3.3 mg/dL (2.5-4.9); Potassium 4.3 mEq/L (3.5-5.1)
[2023-03-25] MEDS: INSULIN REGULAR (HUMAN) 100 UNIT/ML SQ SCH ×4 (07:30→20:44)
--- NOTE | 2023-03-25 08:41 | CON ---
Date of Consultation: 03/24/2023 Reason: Infected left great toe. History Of Present Illness: Patient is a 78-year-old gentleman with multiple medical problems who ibrahim d a bunion on his left foot, which he was grinding down and his skin came off and he did not care to take care of the wound and continued wearing his boots and then over the last couple days, he started getting weak, feverish, minimal discharge from the wound pain without relief and he came to the [facility] room. He denies any sore throat, runny nose, cough, headaches, or dizziness. No chest pain. Review of Systems: Otherwise unremarkable. Past Medical History: Significant for coronary artery disease and insulin-dependent diabetes. Past Surgical History: Significant for CABG. Allergies: NO ALLERGIES. Social History: Patient does not smoke, but he does chew tobacco. Denies drinking alcohol. Family History: Noncontributory. Physical Examination: Vital Signs: Stable. He is afebrile. General: He is awake, alert, and oriented x3. Head and Neck: Cranial nerves 2 through 12 are grossly within normal limits. No neck masses. No JV D. Throat clear. Neck: Supple. Chest: Clear. Heart: S1, S2. Abdomen: Soft. Extremities: Diminished dorsalis pedis and posterior tibial pulses. On the left foot, the great toe is edematous, red, with forefoot being red. Has multiple small holes in the plantar aspect as well as the medial aspect of the toe, appears to be small amount of purulence coming out of the wounds, wh ich was cultured. Patient has a lot of skin around the toe. Neuro: Nonfocal. Diagnostic Data: White count is 6.2 this morning. Left shift has improved. INR is 1.35. His lacti c acid is 1.0, BUN and creatinine are elevated at 20 and 1.98, glucose is 177. Patient had a MRI of the foot, which reveals moderately severe osteomyelitis and potential septic arthritis centered at th e first MTP joint as described. There may be some air bubbles in the soft tissue. Assessment: Left foot diabetic infection with severe osteomyelitis and septic arthritis with possibl e gas development. Recommendation: I discussed in detail the importance of surgery and probably the best surgery for th is patient would be a first toe transmetatarsal amputation. He has had the same operation on the ot er side for similar reasons in the past. However, patient absolutely refuses any surgical interventi on including the debridement. The only thing he allowed me to do was debride the skin at the be dside, which I did with sharp scissors under clean conditions. There was no bleeding noted during th e bedside procedure. We will keep the patient on IV antibiotics, get a PICC line for the osteomyelit is. Patient might need IV antibiotics at least 6 weeks and then we will monitor him carefully and I will re-assess the issue about needing surgery and should the patient agree, we will proceed accordin gly. However, I will also talk to the primary care physician to see if we can have more conversation with the patient to make sure he understand the severity of the illness that he has. We will follow this patient closely. DOC/DARCIE Voice ID: [id number] Report ID: [id number]
[2023-03-25] MEDS ORDERED: VANCOMYCIN 1.5 GM in NA CHLORIDE 0.9% 500 ML IVPB SCH (09:00)
[2023-03-25] MEDS ORDERED: MAGNESIUM SULFATE 1 gm IVPB 1 GM/100 ML BAG IV ONE (09:00)
[2023-03-25] MEDS: CEFEPIME 1 GM in NA CHLORIDE 0.9% 100 ML IV SCH ×2 (09:46→20:43)
--- NOTE | 2023-03-25 11:05 | RAD REPORT ---
EXAM DESCRIPTION: US - Lower Extremity Arterial Bilat - 03/25/2023 9:44 am CLINICAL HISTORY: Leg pain COMPARISON: None FINDINGS: Right common femoral, superficial femora right dorsalis pedis l and popliteal arteries demonstrate bi phasic waveforms The right posterior tibial artery demonstrates monophasic waveform The left common femoral, superficial femoral and popliteal arteries demonstrate biphasic waveforms The left popliteal and left dorsalis pedis arteries demonstrate monophasic waveforms Left posterior tibial artery occluded Grayscale, color and spectral analysis performed on all vessels IMPRESSION: Occlusion left posterior tibial artery Mild to moderate disease involving the remainder of the mid and distal left lower extremity arteries
--- NOTE | 2023-03-25 15:01 | P.PN ---
Subjective Date of Service: 03/25/23 Chief Complaint: osteomylitis Patient has no new complain. He was seen by surgery Dr. Dickinson this morning. He refused toe amputation recommended by Dr. Dcikinson. Physical Examination - Vital Signs Temperature: 98.1 F Blood Pressure: 107/58 Pulse: 67 Respirations: 16 Pulse Ox (%): 96 - Studies Microbiology Data (last 24 hrs): 03/24/23 13:03 Wound - Left Foot Gram Stain - Final Assessment And Plan - Plan Physical Exam General: Alert, Oriented x3, Moderate distress HEENT: Atraumatic, Normocephalic, PERRLA Neck: Supple, 2+ carotid pulse no bruit, JVD not distended Respiratory: Clear to auscultation bilaterally, Normal air movement Cardiovascular: Normal pulses, Regular rate/rhythm, Normal S1 S2 Capillary refill: <2 Seconds Gastrointestinal: Normal bowel sounds, Soft and benign Musculoskeletal: Swelling, Erythema, Tenderness, Warmth (left foot), amputated right great toe and right second toe Cellulitits of Left foot Osteomylitis of left foot Septic arthritis Wound culture and blood cultures sent from the ED Dr. Dickinson evaluated patient and recommended to amputation but patient has refused Continue Vanc/cefepime. Chronic kidney disease stage III BUN/Creatinine 19/1.99 GFR 34 Assessment renal function is at baseline. Nephrology Dr. Ferrell consulted. IDDM Accucheck with SSI Chronic diastolic heart failure Maintenance Lasix DVT ppx: Heparin SQ DNR Discharge Plan: Home
--- NOTE | 2023-03-25 15:55 | CON ---
Date of Consultation: 03/25/2023 Reason For Consult: Acute renal failure. History Of Present Illness: Mr. Mcclain is a 78-year-old male with past medical history significant for insulin-dependent diabetes, coronary artery disease with bypass grafting, presented to the emergency room yesterday complaining of pain and infection to the left foot big toe. He reports grinding of b union on his left foot, later became flaky skin that he ripped off and continued to wear his boots ig noring it. He reported drainage and was cleaning it with hydrogen peroxide. Because it was getting worse, he came to the hospital for further evaluation. Left foot x-ray showed large plantar ulcerati on in the first metatarsal phalangeal joint and the great toe with significant swelling and concern f or osteomyelitis. Chest x-ray showed some mild pulmonary interstitial pneumonia. Creatinine was not ed to be elevated at 1.99 and hence Nephrology is being consulted for further evaluation. 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 Allergies: NO KNOWN DRUG ALLERGIES. Social History: No smoking or alcohol use at this current time. Family History: Noncontributory. Review of Systems: As per history of present illness. Physical Examination: Vital Signs: At this time are showing temperature of 98.1, pulse rate of 67, respiratory rate of 16, and blood pressure of 107/58. General: He appears in no acute distress. HEENT: Atraumatic head. Lungs: Clear to auscultation. Abdomen: Soft and nontender. Extremities: No evidence of edema. Left foot was noted to have ulceration in the great toe and was noted to be in dressing. Laboratory Data: At this time showing creatinine of 1.98, BUN of 20. Other electrolytes are within normal limits. CBC showing stable hemoglobin, hematocrit, and platelet count. Urinalysis was unrema rkable. Current Medications: Include cefepime 1 g every 12 hours, vancomycin 1.5 g every 36 hours, and insul in per protocol. Impression: Chronic renal insufficiency. The patient is possibly having chronic renal insufficiency . Unknown baseline function. At this time, I will get a renal ultrasound for further evaluation and follow up on that. Because even though clinically he is looking euvolemic, because of his concern f or pulmonary edema noted on x-ray, we will hold off on any further IV fluids at this time and monitor his renal function closely. The patient is getting cefepime for treatment of osteomyelitis. Monito r vancomycin levels closely and avoid troughs over 20. Pharmacy consult for managing vancomycin. Av oid any other further hypotension and nephrotoxins and will follow up closely. Plan was discussed wi th the patient. All questions were answered. VV/MODL Voice ID: [id number] Report ID: [id number]
--- NOTE | 2023-03-25 19:06 | RAD REPORT ---
EXAM DESCRIPTION: US - Renal Ultrasound-Complete - 03/25/2023 6:37 pm CLINICAL HISTORY: Acute renal failure COMPARISON: None FINDINGS: The right kidney measures 12 cm with a normal echotexture. The left kidney measures 13 cm with a normal echotexture. Hydronephrosis is not seen. No gross abnormality of bladder IMPRESSION: Unremarkable renal ultrasound.
[2023-03-26] MEDS: VANCOMYCIN 1.5 GM in NA CHLORIDE 0.9% 500 ML IVPB SCH (02:00)
[2023-03-26 05:15] LABS: Hematocrit 31.2 % (39.6-49.0); Lymphocytes % 19.1 % (15.3-44.8); MCV 86.2 fL (80-100); MPV 8.5 fL (7.6-11.3); Platelets 289 thou/uL (152-406); RBC Red Blood Cell Count 3.61 M/uL (4.33-5.43)
[2023-03-26 05:28] LABS: Magnesium 1.9 mg/dL (1.6-2.4); Phosphorus 2.7 mg/dL (2.5-4.9); Potassium 3.7 mEq/L (3.5-5.1)
[2023-03-26] MEDS: INSULIN REGULAR (HUMAN) 100 UNIT/ML SQ SCH ×4 (07:30→21:00)
[2023-03-26] MEDS ORDERED: POTASSIUM CL SA 10 MEQ TAB PO ONE (09:00)
--- NOTE | 2023-03-26 10:40 | PN ---
Date of Progress Note: 03/26/2023 Subjective: The patient is awake, alert. Complains of mild pain in his left foot. No other complai nts. His vitals are stable. His temperature is 99.2 this morning. His dressing is clean, dry, and intact. The redness is still there. Edema and erythema are still present, slightly decreased with c ultures showing Staphylococcus haemolyticus sensitive to Bactrim and vancomycin, that was done in the ER. Laboratory Data: White count is normal. There is no left shift. Kidney functions are slowly improv ing. Sugar is in the 200s. Assessment: Left great toe diabetic infection with osteomyelitis and septic arthritis. Recommendations: Upon further discussion with the patient, he has agreed for transmetatarsal amputat ion. We will continue on vancomycin at this time. After we obtain OR cultures, then the appropriate antibiotics will be prescribed to the patient based on the sensitivity. The risks, benefits, and al ternatives were discussed in detail with this patient for the last 2 days. He understands and agrees . Please note, the patient had an arterial Doppler done which does show disease in his left lower ex tremity and we will address that as an outpatient with Interventional Radiology or Vascular Surgery. /MODL Voice ID: [id number] Report ID: [id number]
[2023-03-26] MEDS: CEFEPIME 1 GM in NA CHLORIDE 0.9% 100 ML IV SCH ×2 (12:17→21:01)
--- NOTE | 2023-03-26 16:14 | P.PN ---
Subjective Date of Service: 03/26/23 Chief Complaint: osteomylitis Patient has no new complain. He has been afebrile. Physical Examination - Vital Signs Temperature: 99.1 F Blood Pressure: 141/63 Pulse: 60 Respirations: 16 Pulse Ox (%): 96 - Studies Microbiology Data (last 24 hrs): 03/24/23 13:03 Wound - Left Foot Gram Stain - Final Assessment And Plan - Plan Physical Exam General: Alert, Oriented x3, Moderate distress HEENT: Atraumatic, Normocephalic, PERRLA Neck: Supple, 2+ carotid pulse no bruit, JVD not distended Respiratory: Clear to auscultation bilaterally, Normal air movement Cardiovascular: Normal pulses, Regular rate/rhythm, Normal S1 S2 Gastrointestinal: Normal bowel sounds, Soft and benign Musculoskeletal: Swelling, Erythema, Tenderness, Warmth (left foot), amputated right great toe and right second toe Cellulitits of Left foot Osteomylitis of left foot Septic arthritis Wound culture and blood cultures sent from the ED Dr. Dickinson evaluated patient and recommended to amputation but patient initially refused. Patient is now agreeing to surgery. Dr. Dickinson considering sugery tomorrow. Continue Vanc/cefepime. Chronic kidney disease stage III BUN/Creatinine 26/05.99 GFR 34 Assessment renal function is at baseline. Nephrology Dr. Ferrell consulted. IDDM Accucheck with SSI Chronic diastolic heart failure Maintenance Lasix DVT ppx: Heparin SQ DNR Discharge Plan: Home
[2023-03-27 02:51] LABS: Hematocrit 29.4 % (39.6-49.0); Lymphocytes % 19.1 % (15.3-44.8); MCV 85.4 fL (80-100); MPV 8.2 fL (7.6-11.3); Platelets 290 thou/uL (152-406); RBC Red Blood Cell Count 3.45 M/uL (4.33-5.43)
[2023-03-27 03:00] LABS: Magnesium 1.7 mg/dL (1.6-2.4); Phosphorus 2.4 mg/dL (2.5-4.9); Potassium 3.9 mEq/L (3.5-5.1)
[2023-03-27] MEDS ORDERED: MAGNESIUM SULFATE 1 gm IVPB 1 GM/100 ML BAG IV ONE (05:58)
[2023-03-27] MEDS: INSULIN REGULAR (HUMAN) 100 UNIT/ML SQ SCH ×4 (07:30→20:37)
[2023-03-27] MEDS ORDERED: BUPIVACAINE 0.5% PF 10 ML VIAL ONE (07:37)
[2023-03-27] MEDS ORDERED: COLLAGENASE 30 GM OINTMENT TOP ONE (07:37)
[2023-03-27] MEDS ORDERED: NA CHLORIDE 0.9% 0 ML ONE (08:01)
[2023-03-27] MEDS ORDERED: NA CHLORIDE 0.9% 1,000 ML ONE (08:12)
[2023-03-27] MEDS: CEFEPIME 1 GM in NA CHLORIDE 0.9% 100 ML IV SCH ×2 (08:23→08:41)
[2023-03-27] MEDS ORDERED: propofoL 200 MG/20 ML VIAL IV ONE ×3 (08:25→09:40)
[2023-03-27] MEDS ORDERED: FENTANYL CITR 100 MCG/2 ML ONE (08:25)
[2023-03-27] MEDS ORDERED: ONDANSETRON 4 MG/2 ML VIAL ONE (08:26)
[2023-03-27] MEDS ORDERED: LIDOCAINE 1% MPF 5 ML VIAL ONE (08:29)
[2023-03-27] MEDS ORDERED: EPINEPHRINE/PF 1 MG/ML AMP ONE (08:29)
[2023-03-27] MEDS ORDERED: dexAMETHasone 10 MG/ML VIAL ONE (08:29)
[2023-03-27] MEDS ORDERED: ROPLVACAINE HCL 20 ML ONE (08:29)
[2023-03-27] MEDS: CEFEPIME 2 GM in NA CHLORIDE 0.9% 100 ML IV SCH ×2 (09:00→20:33)
[2023-03-27] MEDS ORDERED: POTASSIUM PHOS IN 0.9 % NACL 15 MMOL/250 ML BAG IV ONE (09:00)
[2023-03-27] MEDS ORDERED: LIDOCAINE 1% MPF 30 ML VIAL ONE (09:04)
[2023-03-27] MEDS ORDERED: LIDOCAINE 2% MPF 5 ML VIAL ONE (09:18)
[2023-03-27] MEDS ORDERED: HYDROCODONE/APAP 7.5/325 MG TAB PO PRN (10:21)
[2023-03-27] MEDS ORDERED: HYDROMORPHONE HCL 1 MG/ML INJ IV PRN (10:21)
--- NOTE | 2023-03-27 10:21 | P.OP ---
Date of Service: 03/27/23 Preop diagnosis: Severe osteomyelitis with septic arthritis left first toe Postop diagnosis: Same Procedure performed: Left first toe transmetatarsal amputation Surgeon: Chemo Dickinson MD Property Management Intern: None Estimated blood loss: Minimal Specimen: Pus and bone for cultures, left first toe Findings: As above Anesthesia: Regional Complications: None Drains: None Fluids and blood products: Nonapplicable Disposition: Recovery room Operative note: Patient brought to the OR placed in supine position. Regional block had already been performed. Patient prepped and draped in the usual sterile fashion. 15 blade used to make an ellipse of skin around the base of the left first toe including 3 holes that the patient had which had pus extruding from them. 1 hole was on the plantar side, 1 hole was on the medial aspect of the toe and one hole was on the dorsum of the toe. These holes were made through the entire foot. Cautery was utilized to divide subcutaneous tissue and bleeding was controlled with cautery. The first metatarsal head was identified and freed from the surrounding tissue with sharp and blunt dissection. Entire toe was removed with bone cutter. Rongeur and rasp was used to the rough edges. Wound irrigated and bleeding controlled cautery. Sterile collagenase dressing applied. Patient awakened and taken to recovery room in good general condition. CC:
[2023-03-27] MEDS: VANCOMYCIN 1.5 GM in NA CHLORIDE 0.9% 500 ML IVPB SCH (13:00)
[2023-03-27] MEDS ORDERED: VANCOMYCIN 1.5 GM in NA CHLORIDE 0.9% 500 ML IVPB SCH ×2 (18:00→19:00)
--- NOTE | 2023-03-27 18:08 | P.PN ---
Subjective Date of Service: 03/27/23 Chief Complaint: osteomylitis Patient has no new complain. Status post left first transmetatarsal amputation today. Physical Examination - Vital Signs Temperature: 98.6 F Blood Pressure: 152/70 Pulse: 60 Respirations: 16 Pulse Ox (%): 96 - Physical Exam General: Alert, In no apparent distress, Oriented x3 HEENT: Mucous membr. moist/pink Neck: Supple, JVD not distended Respiratory: Clear to auscultation bilaterally, Normal air movement Cardiovascular: No edema, Regular rate/rhythm, Normal S1 S2 Gastrointestinal: Normal bowel sounds, Soft and benign, Non-distended - Studies Microbiology Data (last 24 hrs): 03/24/23 13:03 Wound - Left Foot Gram Stain - Final 03/24/23 13:03 Wound - Left Foot Culture & Sensitivity - Final Staphylococcus Haemolyticus Acinetobacter Dea/Haem Assessment And Plan - Plan Physical Exam General: Alert, Oriented x3, Moderate distress HEENT: Atraumatic, Normocephalic, PERRLA Neck: Supple, 2+ carotid pulse no bruit, JVD not distended Respiratory: Clear to auscultation bilaterally, Normal air movement Cardiovascular: Normal pulses, Regular rate/rhythm, Normal S1 S2 Gastrointestinal: Normal bowel sounds, Soft and benign Musculoskeletal: Swelling, Erythema, Tenderness, Warmth (left foot), amputated right great toe and right second toe Cellulitits of Left foot Osteomylitis of left foot Septic arthritis Wound culture and blood cultures sent from the ED Status post transmetatarsal amputation by Dr. Dickinson. Deep tissue wound culture sent. Continue antibiotics for now Tailor antibiotics based on deep tissue wound culture results Oral antibiotics on discharge per Dr. Dickinson. Acute on chronic kidney disease stage III Serum creatinine is trending down Nephrology Dr. Ferrell consulted. IDDM Accucheck with SSI Chronic diastolic heart failure Euvolemic and stable. DVT ppx: Heparin SQ DNR Discharge Plan: Home
--- NOTE | 2023-03-27 18:10 | P.PN ---
Subjective Date of Service: 03/27/23 Chief Complaint: osteomylitis Subjective: Doing well 03/27: Gaston was seen after surgery today, dressing C/D/I, peripheral pulse present. He is doing very well and ready to eat. He is in good spirits with at bedside she states he is looking much better. Surgical specimen culture pending. Review of Systems 10-point ROS is otherwise unremarkable Physical Examination - Vital Signs Temperature: 98.6 F Blood Pressure: 152/70 Pulse: 60 Respirations: 16 Pulse Ox (%): 96 - Studies Microbiology Data (last 24 hrs): 03/24/23 13:03 Wound - Left Foot Gram Stain - Final 03/24/23 13:03 Wound - Left Foot Culture & Sensitivity - Final Staphylococcus Haemolyticus Acinetobacter Dea/Haem Assessment And Plan - Plan Physical Exam General: Alert, Oriented x3, Moderate distress HEENT: Atraumatic, Normocephalic, PERRLA Neck: Supple, 2+ carotid pulse no bruit, JVD not distended Respiratory: Clear to auscultation bilaterally, Normal air movement Cardiovascular: Normal pulses, Regular rate/rhythm, Normal S1 S2 Gastrointestinal: Normal bowel sounds, Soft and benign Musculoskeletal: Left great toe amputation/dressing C/D/I, amputated right great toe and right second toe, peripheral pulses present Cellulitits of Left foot Osteomylitis of left foot Septic arthritis Wound culture and blood cultures sent from the ED Left first toe transmetatarsal Amputation today with Dr. Dickinson specimen sent for c/s- pending Continue Vanc/cefepime. wound care instructions: Collaganase, wet to dry NS daily Chronic kidney disease stage III BUN/Creatinine 04/07.37 GFR 53 Assessment renal function is at baseline. Nephrology Dr. Ferrell consulted. IDDM Accucheck with SSI Chronic diastolic heart failure Maintenance Lasix DVT ppx: Heparin SQ DNR Discharge Plan: Home Discharge Plan: Home Plan to discharge in: 48 Hours Time Spent Managing PTS Care (In Minutes): 35
--- NOTE | 2023-03-27 20:12 | P.PN ---
Date of Service: 03/27/23 Vital Signs Temp Pulse Resp BP Pulse Ox 98.6 F 60 16 152/70 H 96 03/27/23 18:20 03/27/23 18:20 03/27/23 18:20 03/27/23 18:20 03/27/23 18:20 Medications Hydrocodone Bitart/Acetaminophen (Hydrocodone/Apap 7.5/325 Mg Tab) 1 tab PO Q4H PRN PRN Reason: Pain scale 5-7 (Moderate) Collagenase (Collagenase 30 Gm Ointment) 1 appl TOP DAILY VALERIE Glucagon (Glucagon 1 Mg/Vial) 1 mg IM 1X PRN; Protocol PRN Reason: HYPOGLYCEMIA Hydromorphone HCl (Hydromorphone Hcl 1 Mg/Ml Inj) 1 mg IV Q4H PRN PRN Reason: Pain scale 8-10 (Severe) Dextrose (Dextrose 10% Water Iv Soln.) 125 mls @ 0 mls/hr IV PRN PRN; Protocol PRN Reason: HYPOGLYCEMIA Cefepime HCl 2 gm/ Sodium (Chloride) 100 mls @ 200 mls/hr IV Q12HR VALERIE; Protocol Last Admin: 03/27/23 09:00 Dose: Not Given Vancomycin HCl 1.5 gm/ Sodium (Chloride) 500 mls @ 250 mls/hr IVPB Q24H VALERIE; Protocol Last Admin: 03/27/23 18:11 Dose: 500 mls Insulin Human Regular (Insulin Regular (Human) 100 Unit/Ml) 0 unit SQ ACHS VALERIE; Protocol Last Admin: 03/27/23 16:19 Dose: 8 unit Ondansetron HCl (Ondansetron 4 Mg/2 Ml Vial) 4 mg IV Q6H PRN PRN Reason: NAUSEA / VOMITING Microbiology Results 03/24/23 13:03 Wound - Left Foot Gram Stain - Final 03/24/23 13:03 Wound - Left Foot Culture & Sensitivity - Final Staphylococcus Haemolyticus Acinetobacter Dea/Haem 03/24/23 12:45 Blood - Blood Aerobic Blood Culture - Preliminary No growth in 24 hours. 03/24/23 12:45 Blood - Blood Anaerobic Blood Culture - Preliminary No growth in 24 hours. 03/24/23 12:30 Blood - Blood Aerobic Blood Culture - Preliminary No growth in 24 hours. 03/24/23 12:30 Blood - Blood Anaerobic Blood Culture - Preliminary No growth in 24 hours. Assessment/ Plan: Nephrology No dyspnea No chest pain Feeling better post surgery No acute events overnight Vitals, medications, blood work and imaging reviewed in the chart. NAD. NCAT. MMM. Neck supple. Normal respiratory effort. RRR. Abd ND. No C/C. LE Edema none. No rash. Left foot surgical wound/ partial foot amputation. AAO. Normal speech. Stage I KASSANDRA CKD III -No NSAIDs Hypophosphatemia -Replete as ordered HTN with CKD -Start Amlodipine daily DM II with Hyperglycemia DM II with Left Foot Ulcer -RISS -Continue Abx; monitor vanco level -Wound care as ordered Hypoalbuminemia -Recommend protein supplementation Anemia in chronic illness -Monitor H&H CKD MBD -Start Ergo Hospitalist note reviewed
[2023-03-28 03:26] LABS: Absolute Lymphocytes (CBC) 0.5 K/uL (0.7-4.9); Hematocrit 29.4 % (39.6-49.0); MCV 85.1 fL (80-100); MPV 8.4 fL (7.6-11.3); Platelets 290 thou/uL (152-406); RBC Red Blood Cell Count 3.46 M/uL (4.33-5.43)
[2023-03-28 03:37] LABS: Phosphorus 2.1 mg/dL (2.5-4.9); Potassium 4.6 mEq/L (3.5-5.1); Uric Acid 6.2 mg/dL (3.5-7.2)
[2023-03-28 05:03] LABS: Blood Morphology Comment NOT SEEN (NOT SEEN); Platelet Estimate ADEQ
[2023-03-28] MEDS: POTASS/SODIUM PHOSPHATE 1 PKT POWD.PACK PO SCH ×4 (06:15→08:20)
[2023-03-28 06:56] LABS: Specific Gravity 1.013 (1.005-1.030); Urine Bacteria None Seen /HPF (<20); Urine Bilirubin NEGATIVE (Negative); Urine Blood Negative (Negative); Urine Clarity Clear (Clear); Urine Color Light-Yellow (Yellow); Urine Glucose 4+ (Over) (Negative); Urine Mucus Slight /HPF (None Seen); Urine Protein TRACE (Negative); Urine RBC <5 /HPF (None Seen); Urine Sperm Present (None Seen); Urine Urobilinogen Normal (Normal)
[2023-03-28] MEDS ORDERED: INSULIN REGULAR (HUMAN) 100 UNIT/ML SQ SCH (06:58)
[2023-03-28 07:16] LABS: UR PROTEIN 30.6 mg/dL (<11.9); Urine Protein/Creatinine Ratio 0.36 ratio (<0.15)
[2023-03-28] MEDS: DRISDOL (VITAMIN D=ERGOCALCIFEROL) 50000 UNIT CAP PO SCH (08:21)
[2023-03-28] MEDS: CEFEPIME 2 GM in NA CHLORIDE 0.9% 100 ML IV SCH ×2 (08:21→08:40)
[2023-03-28] MEDS ORDERED: COLLAGENASE 30 GM OINTMENT TOP SCH ×2 (09:00)
[2023-03-28] MEDS ORDERED: AMLODIPINE 5 MG TAB PO SCH (09:00)
[2023-03-28] MEDS ORDERED: AMLODIPINE 2.5 MG TAB PO SCH (09:00)
[2023-03-28 09:12] VITALS: BP 140/76; TEMP 97.9
[2023-03-28 11:55] VITALS: O2SAT 98
--- NOTE | 2023-03-28 13:41 | P.DS ---
Admission Date: 03/24/23 Discharge Date: 03/28/23 Reason for Admission: osteomylitis Consultations: Dr. Dickinson general surgery Procedures: Left first toe transmetatarsal Amputation 03/27 Brief History of Present Illness: Gaston Mcclain is a 78-year-old male with a past medical history of diabetesIDDM and coronary artery bypass graft who presents to the ED complaining of pain and infection to left foot. Gaston reports grinding a bunion on his left foot which later became flaky skin that he states he ripped off and continued wearing his boots ignoring it. He reports seeing drainage and cleaning it with hydrogen per oxide. He reports it continued to get worse. This morning he felt general malaise and weakness and could not sleep for the last few nights. Of note he has prescribed himself ciprofloxacin 750 mg p.o. daily without relief. Unknown how many days he was taking this. Initial vital BP 106 / 95; Pulse 75; Resp 18; Temp 98(O); Pulse Ox 100%. Significant labs CR protein 155, BNP 4353, troponin 31.6, BUN/creatinine 19/1.99, WBC 8. Left foot x-ray report "There is a large plantar ulceration at the first MTP joint and great toe with significant swelling. No soft tissue gas evident. No definitive osteomyelitis seen. Large calcaneal spurs" Right foot x-ray reports " Previous resection of first through third toes and metatarsals with associated bony remodeling again seen, unchanged since 2020. The fourth and fifth toes appear medially subluxed. Moderate soft tissue swelling along the anterior dorsal aspect of the foot. Large calcaneal spurs" MRI of left foot reports "Moderately severe osteomyelitis and potential septic arthritis centered at the first MTP joint as described". Chest x-ray reports "Mild interstitial pulmonary edema suspected. The heart is moderately enlarged size. No displaced fractures.Sternotomy wires". Gaston will be admitted to hospitalist service for further evaluation and treatment of osteomyelitis Vitas of left foot, Dr. Dickinson consulted. Hospital Course: Patient was admitted for cellulitis/osteomyelitis of the left foot and subsequently underwent left first toe transmetatarsal amputation on 03/27. The initial plan was to wait on deep wound cultures but patient was unhappy with management of his blood pressure medications and decided to leave AGAINST MEDICAL ADVICE today. His surgeon was notified and he was sent a prescription for Bactrim regular strength twice daily for 10 days. He will follow-up with general surgery/wound healing in 1 week. 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 03/27 Septic arthritis Chronic kidney disease stage III IDDM Chronic diastolic heart failure <Darian Medina - Last Filed: 03/28/23 13:42> Admission Date: 03/24/23 Discharge Date: 03/28/23 <Tono Anand - Last Filed: 03/28/23 22:35> Disposition: AMA-LEFT AGAINST MEDICAL ADVIC Discharge Condition: FAIR Vital Signs/Physical Exam: Temp Pulse Resp BP Pulse Ox 97.9 F 61 18 140/76 98 03/28/23 08:00 03/28/23 08:00 03/28/23 08:00 03/28/23 08:00 03/28/23 08:00 Laboratory Data at Discharge: WBC 5.90 thou/uL (4.3-10.9) 03/28/23 01:39 Hgb 10.2 g/dL (13.6-17.9) L 03/28/23 01:39 Hct 29.4 % (39.6-49.0) L 03/28/23 01:39 Plt Count 290 thou/uL (152-406) 03/28/23 01:39 PT 14.9 SECONDS (9.5-12.5) H 03/24/23 12:40 INR 1.35 03/24/23 12:40 Sodium 135 mEq/L (136-145) L D 03/28/23 01:39 Potassium 4.6 mEq/L (3.5-5.1) D 03/28/23 01:39 BUN 15 mg/dL (7-18) 03/28/23 01:39 Creatinine 1.50 mg/dL (0.70-1.30) H 03/28/23 01:39 Glucose 331 mg/dL (74-106) H 03/28/23 01:39 Uric Acid 6.2 mg/dL (3.5-7.2) 03/28/23 01:39 Phosphorus 2.1 mg/dL (2.5-4.9) L 03/28/23 01:39 Magnesium 2.0 mg/dL (1.6-2.4) 03/28/23 01:39 Total Bilirubin 0.9 mg/dL (0.2-1.0) 03/24/23 12:40 AST 27 U/L (15-37) 03/24/23 12:40 ALT 38 U/L (16-61) 03/24/23 12:40 Alkaline Phosphatase 65 U/L (45-117) 03/24/23 12:40 Lipase 21 U/L (13-75) 03/24/23 12:40 <Darian Medina - Last Filed: 03/28/23 13:42> Vital Signs/Physical Exam: Temp Pulse Resp BP Pulse Ox 97.9 F 61 18 140/76 98 03/28/23 08:00 03/28/23 08:00 03/28/23 08:00 03/28/23 08:00 03/28/23 08:00 Laboratory Data at Discharge: WBC 5.90 thou/uL (4.3-10.9) 03/28/23 01:39 Hgb 10.2 g/dL (13.6-17.9) L 03/28/23 01:39 Hct 29.4 % (39.6-49.0) L 03/28/23 01:39 Plt Count 290 thou/uL (152-406) 03/28/23 01:39 PT 14.9 SECONDS (9.5-12.5) H 03/24/23 12:40 INR 1.35 03/24/23 12:40 Sodium 135 mEq/L (136-145) L D 03/28/23 01:39 Potassium 4.6 mEq/L (3.5-5.1) D 03/28/23 01:39 BUN 15 mg/dL (7-18) 03/28/23 01:39 Creatinine 1.50 mg/dL (0.70-1.30) H 03/28/23 01:39 Glucose 331 mg/dL (74-106) H 03/28/23 01:39 Uric Acid 6.2 mg/dL (3.5-7.2) 03/28/23 01:39 Phosphorus 2.1 mg/dL (2.5-4.9) L 03/28/23 01:39 Magnesium 2.0 mg/dL (1.6-2.4) 03/28/23 01:39 Total Bilirubin 0.9 mg/dL (0.2-1.0) 03/24/23 12:40 AST 27 U/L (15-37) 03/24/23 12:40 ALT 38 U/L (16-61) 03/24/23 12:40 Alkaline Phosphatase 65 U/L (45-117) 03/24/23 12:40 Lipase 21 U/L (13-75) 03/24/23 12:40 <Tono Anand - Last Filed: 03/28/23 22:35> Diet: ADA Time spent managing pt's care (in minutes): 25 <Darian Medina - Last Filed: 03/28/23 13:42> Physician Review: Patient Assessed, Agree with Above Assessment and Plan (Patient left prior to me seeing him/ examining him. - Shaina Anand MD) <Tono Anand - Last Filed: 03/28/23 22:35> Home Medications: Insulin -Regular Human [Novolin -R*] 10 - 12 units SQ 1X 09/10/13 Insulin -Regular Human [Novolin -R*] 10 units SQ 1X 14 Insulin -Regular Human [Novolin -R*] 15 units SQ 1X 09/10/14 Sulfamethoxazole/Trimethoprim [Bactrim 400-80 mg Tablet] 1 each PO BID #20 tab 03/28/23 New Medications: Sulfamethoxazole/Trimethoprim [Bactrim 400-80 mg Tablet] 1 each PO BID #20 tab Physician Discharge Instructions: Continue home medications as prescribed, take Bactrim twice daily for 10 days which was sent to your pharmacy. Follow up with Dr. Dickinson in one week for wound care. Followup: NONE,NONE [Primary Care Provider] - Chemo Dickinson MD [ACTIVE - CAN ADMIT] - 1 Week
[2023-03-28] MEDS ORDERED: ENSURE HIGH PROTEIN 237 ML CAN PO SCH (21:00)
--- NOTE | 2023-03-28 21:12 | P.PN ---
Date of Service: 03/28/23 Vital Signs Temp Pulse Resp BP Pulse Ox 97.9 F 61 18 140/76 98 03/28/23 08:00 03/28/23 08:00 03/28/23 08:00 03/28/23 08:00 03/28/23 08:00 Microbiology Results 03/24/23 13:03 Wound - Left Foot Gram Stain - Final 03/24/23 13:03 Wound - Left Foot Culture & Sensitivity - Final Staphylococcus Haemolyticus Acinetobacter Dea/Haem 03/24/23 12:45 Blood - Blood Aerobic Blood Culture - Preliminary No growth in 24 hours. 03/24/23 12:45 Blood - Blood Anaerobic Blood Culture - Preliminary No growth in 24 hours. 03/24/23 12:30 Blood - Blood Aerobic Blood Culture - Preliminary No growth in 24 hours. 03/24/23 12:30 Blood - Blood Anaerobic Blood Culture - Preliminary No growth in 24 hours. Assessment/ Plan: Nephrology No dyspnea No chest pain No acute events overnight Vitals, medications, blood work and imaging reviewed in the chart. NAD. NCAT. MMM. Neck supple. Normal respiratory effort. RRR. Abd ND. No C/C. LE Edema trace. No rash. Left foot surgical wound/ partial foot amputation. AAO. Normal speech. Stage I KASSANDRA CKD III with Proteinuria -No NSAIDs Hypophosphatemia -Replete as ordered HTN with CKD -Continue Amlodipine daily DM II with Hyperglycemia DM II with CKD DM II with Left Foot Ulcer -RISS -Continue Abx; monitor vanco level -Wound care as ordered Hypoalbuminemia -Recommend protein supplementation Anemia in chronic illness -Monitor H&H CKD MBD -Continue Ergo Hospitalist note reviewed Case reviewed with Dr. Anand
--- NOTE | 2023-03-29 17:10 | EKG ---
Test Date: 2023-03-24 Test Time: 12:38:37 Bd [employer] Teacher: CAMILA MEASUREMENT RESULTS: Intervals: Rate: 71 NE: 182 QRSD: 92 QT: 430 QTc: 467 [place]: P: 46 NE: 182 QRS: 104 T: 60 INTERPRETIVE STATEMENTS: Normal sinus rhythm Rightward axis Nonspecific ST and T wave abnormality Prolonged QT Abnormal ECG No previous ECG available for comparison Electronically Signed On 03-29-23 16:56:14 [employer] E[employer]MENT SERVICER by Sharif Cerda
== END 2023-03-28 09:00 | disposition left against medical advice (07) | DRG 617 ==
LOC: ER 11:34 → ERHOLD 13:59 → 2ND 16:09
PROVIDERS: ADMIT Internal Medicine; ATTEND Hospitalist
PROC: 0Y6Q0Z0 Detachment at Left 1st Toe, Complete, Open Approach (ICD-10-PCS; principal; 2023-03-27 08:30)
DX: E11.69 Type 2 diabetes mellitus with other specified complication (principal); I13.0 Hypertensive heart and chronic kidney disease with heart failure and stage 1 through stage 4 chronic kidney disease, or unspecified chronic kidney disease; L03.116 Cellulitis of left lower limb; M86.172 Other acute osteomyelitis, left ankle and foot; M00.9 Pyogenic arthritis, unspecified; I50.32 Chronic diastolic (congestive) heart failure; Z66 Do not resuscitate; E11.22 Type 2 diabetes mellitus with diabetic chronic kidney disease; E11.65 Type 2 diabetes mellitus with hyperglycemia; E11.621 Type 2 diabetes mellitus with foot ulcer; L97.529 Non-pressure chronic ulcer of other part of left foot with unspecified severity; N18.30 Chronic kidney disease, stage 3 unspecified; D63.1 Anemia in chronic kidney disease; N17.9 Acute kidney failure, unspecified; E83.39 Other disorders of phosphorus metabolism; E88.09 Other disorders of plasma-protein metabolism, not elsewhere classified; F17.220 Nicotine dependence, chewing tobacco, uncomplicated; Z95.1 Presence of aortocoronary bypass graft; Z79.4 Long term (current) use of insulin; Z11.52 Encounter for screening for COVID-19; Z53.29 Procedure and treatment not carried out because of patient's decision for other reasons
CPT/HCPCS: 0241U; 36415; 71045; 76770; 80048; 80076; 80202; 81001; 82043; 82570; 82947; 83605; 83690; 83735; 83880; 84100; 84156; 84484; 84550; 85025; 85610; 86140; 87040; 87070; 87075; 87077; 87176; 87186; 87205; 88305; 88311; 93005; 93925; 96365; 96366; 96367; 96372; 96375; 99285; J0171; J0692; J1100; J1650; J1815; J2001; J2270; J2405; J2543; J2704; J3010; J3475; J3590; J7030; J7040; J7050